=== PATIENT | female | born 1965 | race Caucasian/White ===

== ENCOUNTER 2017-07-25 10:42 | Emergency (ER) | payer OTHER ==
[2017-07-25 10:47] VITALS: BP 120/81; PULSE 74; RESP 20; TEMP 97.5; O2SAT 100; BMI 26.6
--- NOTE | 2017-07-25 11:05 | ED PDOC ---
HPI: General Adult Time Seen by Provider: 07/25/17 10:49 Chief Complaint (Nursing): Trauma History Per: Patient Onset/Duration Of Symptoms: Days (7) Current Symptoms Are (Timing): Still Present Severity: Moderate Pain Scale Rating Of: 3 Additional Complaint(s): Slipped and fell with injury to right ribs on 07/18. Pain on inspiration and movement but no SOB. No other injury. Past Medical History Vital Signs: Last Vital Signs Temp 97.5 F L 07/25/17 10:46 Pulse 74 07/25/17 10:46 Resp 20 07/25/17 10:46 BP 120/81 07/25/17 10:46 Pulse Ox 100 07/25/17 11:06 - Medical History PMH: Diabetes - Family History Family History: States: Unknown Family Hx - Home Medications Home Medications: Ambulatory Orders Medication Instructions Recorded traMADol [Ultram] 50 mg PO Q8 #10 tab 07/25/17 - Allergies Allergies/Adverse Reactions: Allergies Allergy/AdvReac Type Severity Reaction Status Date / Time No Known Allergies Allergy Verified 07/25/17 10:53 Review of Systems Cardiovascular: Positive for: Chest Pain Respiratory: Negative for: Shortness of Breath Gastrointestinal: Negative for: Abdominal Pain Musculoskeletal: Positive for: Back Pain Physical Exam - Physical Exam Appears: Positive for: Non-toxic, No Acute Distress Skin: Positive for: Normal Color, Warm, DRY Cardiovascular/Chest: Positive for: Regular Rate, Rhythm. Negative for: Chest Non Tender (Ant catherine wall tenderness rightb side) Respiratory: Positive for: Normal Breath Sounds - ECG O2 Sat by Pulse Oximetry: 100 Disposition - Clinical Impression Clinical Impression: Rib fracture - Patient ED Disposition Is Patient to be Admitted: No Counseled Patient/Family Regarding: Studies Performed, Diagnosis, Need For Followup, Rx Given - Disposition Referrals: FAMILY PROVIDER,NO [Primary Care Provider] - [facility] [Outside] Disposition: Routine/Home Disposition Time: 11:43 Condition: FAIR Prescriptions: traMADol [Ultram] 50 mg PO Q8 #10 tab Instructions: Rib Fracture (DC) Forms: [employer] (Russian)
--- NOTE | 2017-07-25 14:12 | RAD ---
PROCEDURE: Radiographs of the Chest and Right Ribs. HISTORY: trauma COMPARISON: None available. TECHNIQUE: Frontal radiograph of the chest and multiple oblique radiographs of the right ribs were obtained. FINDINGS: RIGHT RIBS: There are acute nondisplaced fractures in the right lateral 5th and 6th ribs. Bone alignment and mineralization are normal. LUNGS: The lungs are well inflated and clear. PLEURA: No pneumothorax or pleural fluid. CARDIOVASCULAR: Normal sized heart. No pulmonary vascular congestion. OTHER FINDINGS: None. IMPRESSION: Acute nondisplaced fractures in the right lateral 5th and 6th ribs. No pleural effusion or pneumothorax.
== END 2017-07-25 11:51 | disposition home or self-care (01) ==
LOC: H.ER 10:42
DX: S22.49XA Multiple fractures of ribs, unspecified side, initial encounter for closed fracture (principal); W01.0XXA Fall on same level from slipping, tripping and stumbling without subsequent striking against object, initial encounter; Y92.89 Other specified places as the place of occurrence of the external cause; E11.9 Type 2 diabetes mellitus without complications